=== PATIENT | male | born 1975 | race Caucasian/White ===

== ENCOUNTER → 2017-07-23 | Emergency (ER) | payer SELFPAY ==
[~2017-07-23] VITALS: Ht 162.6 cm; Wt 59.0 kg
[~2017-07-23] MED LIST: DEXAMETHASONE 4MG/ML 1ML VIAL ONE; KETOROLAC 30MG/ML VIAL ONE; ONDANSETRON HCL 4MG/2ML VIAL ONE; PROPOFOL 200MG/20ML VIAL IV ONE; ROCURONIUM BROMIDE 10MG/ML VIAL 5ML IV ONE
[2017-07-23 23:14] VITALS: BP 124/78
== END | disposition home or self-care (01) ==
LOC: EDBD 23:17 → ER 23:17
DX: R41.82 Altered mental status, unspecified (principal)
CPT/HCPCS: J1100; J1885; J2405; J2704; J3490